=== PATIENT | male | born 1970 | race Caucasian/White ===

== ENCOUNTER → 2020-09-15 11:38 | Outpatient (CLI) | payer BC, SELFPAY ==
--- NOTE | ~2020-09-15 | XR_ITS ---
XR shoulder LT min 2V 09/15/2020 12:22 INDICATION: Left shoulder pain PROCEDURE: 4 views left shoulder COMPARISON: No prior studies for comparison. FINDINGS: Fracture, dislocation or subluxation is not identified. The soft tissues appear within norm al limits. No foreign bodies are identified. IMPRESSION: 1: NO ACUTE BONE OR JOINT ABNORMALITY IDENTIFIED. Reviewed, dictated and finalized at location B. [employer]
== END ==
DX: M25.512 Pain in left shoulder (principal)
CPT/HCPCS: 73030

== ENCOUNTER → 2020-10-03 10:01 | Outpatient (CLI) | payer BC, SELFPAY ==
--- NOTE | ~2020-10-03 | MR_ITS ---
EXAMINATION: MR shoulder LT wo con DATE: 10/03/2020 10:40 INDICATION: Acute onset left shoulder pain TECHNIQUE: Magnetic resonance imaging (MRI) of the left shoulder was performed without intravenous co ntrast. Sequences included axial PD-weighted FS FSE, coronal oblique PD-weighted FS FSE, coronal obli que T2-weighted FS FSE, sagittal PD-weighted FS FSE, and sagittal T1-weighted SE. COMPARISON: Left shoulder radiographs dated 09/15/2020 FINDINGS: Coracoacromial arch: The acromion undersurface is curved in morphology (type II). The coracoacromial ligament is normal. M inimal acromioclavicular osteoarthritis. Rotator cuff: Mild tendinopathy of the supraspinatus and anterior infraspinatus tendons. Small moderate severity ar ticular sided tear at the conjoined portion of the tendons which involves approximately two thirds of the tendon thickness and extends approximately 5 mm AP at the junction of the superior middle facet footplates the teres minor tendon is normal. The teres minor tendon is normal. Mild subscapularis ten dinopathy without discrete tear. Normal rotator cuff muscle bulk and signal. Biceps tendon, glenoid labrum and glenohumeral cartilage: Long head of the biceps tendon is normal. Small mild partial-thickness tear along the base of the pos terior superior glenoid labrum. Glenohumeral cartilage is normal. Fluid: Physiologic amount of fluid in the glenohumeral joint and biceps tendon sheath. No loose osteochondra l bodies. Small amount of fluid in the subacromial/subdeltoid bursa consistent with mild bursitis. Bones: Normal marrow signal with no edema, fracture or abnormal marrow replacing process. Mild cystic change at the anterior superior facet of the greater tuberosity. IMPRESSION: 1. Mild supraspinatus and infraspinatus tendinopathy with small moderate severity articular sided tea r at the conjoined portion of the tendon. 2. Mild subscapularis tendinopathy without discrete tear. 3. Chondral labral delamination with small mild partial-thickness tear at the base of the posterior s uperior glenoid labrum. 4. Mild subacromial/subdeltoid bursitis. Reviewed, dictated and finalized at location B. [employer] IMPRESSION: 1. Mild supraspinatus and infraspinatus tendinopathy with small moderate severi ty articular sided tear at the conjoined portion of the tendon. 2. Mild subscapularis tendinopathy without discrete tear. 3. Chondral labral delamination with small mild partial-thickness tear at the b ase of the posterior superior glenoid labrum. 4. Mild subacromial/subdeltoid bursitis.
== END ==
DX: S43.402A Unspecified sprain of left shoulder joint, initial encounter (principal); M75.52 Bursitis of left shoulder
CPT/HCPCS: 73221

== ENCOUNTER → 2021-09-29 07:28 | Outpatient (CLI) | payer BC, SELFPAY ==
--- NOTE | ~2021-09-29 | MR_ITS ---
. EXAMINATION: MR shoulder LT wo con DATE: 09/29/2021 08:19 INDICATION: Left shoulder pain. Rotator cuff repair. TECHNIQUE: Magnetic resonance imaging (MRI) of the left shoulder was performed without intravenous co ntrast. Sequences included axial PD-weighted FS FSE, coronal oblique PD-weighted FS FSE and T2-weight ed FS FSE, and sagittal oblique T2-weighted FS FSE and T1-weighted FSE. COMPARISON: Left shoulder radiographs 09/15/2020, MRI 09/05/2020 FINDINGS: Coracoacromial arch: The acromion undersurface is curved in morphology (type II). There is mild acromioclavicular joint os teoarthritis. There is mild subacromial/subdeltoid bursitis. Rotator cuff: There are suture anchors in greater tuberosity. There is severe supraspinatus and infraspinatus tendi nopathy. There is an articular-sided, partial-thickness tear of supraspinatus and infraspinatus tendo ns measuring 2.9 cm anterior to posterior by 2.5 cm proximal to distal by 50% tendon thickness. Teres minor tendon is normal. There is severe subscapularis tendinopathy. There is mild fatty atrophy of i nfraspinatus muscle belly. Biceps tendon and glenoid labrum: Biceps tendon is in bicipital groove. Intra-articular biceps tendon is normal. There is a tear of gle noid labrum from 11:00 to 12:00 (SLAP tear). Fluid: There is a small glenohumeral joint effusion. Bones/cartilage: Glenoid cartilage and humeral head cartilage are normal, but motion artifact decreases sensitivity. IMPRESSION: 1. Severe rotator cuff tendinopathy with articular-sided, partial-thickness tear of supraspinatus and infraspinatus tendons and changes of prior rotator cuff repair. 2. SLAP tear. 3. Small glenohumeral joint effusion. 4. Mild acromioclavicular joint osteoarthritis. 5. Mild subacromial/subdeltoid bursitis. Reviewed, dictated and finalized at location A. [employer] IMPRESSION: 1. Severe rotator cuff tendinopathy with articular-sided, partial-thickness tea r of supraspinatus and infraspinatus tendons and changes of prior rotator cuff repair. 2. SLAP tear. 3. Small glenohumeral joint effusion. 4. Mild acromioclavicular joint osteoarthritis. 5. Mild subacromial/subdeltoid bursitis.
== END ==
DX: M25.512 Pain in left shoulder (principal); Z98.890 Other specified postprocedural states; M75.82 Other shoulder lesions, left shoulder; S43.432A Superior glenoid labrum lesion of left shoulder, initial encounter; M25.412 Effusion, left shoulder; M19.012 Primary osteoarthritis, left shoulder; M75.52 Bursitis of left shoulder
CPT/HCPCS: 73221